=== PATIENT | female | born 1950 | race Caucasian/White ===

== ENCOUNTER → 2016-07-09 | Outpatient (CLI) | payer MEDICARE, BC ==
[~2016-07-09] MED LIST: FENTANYL PF 100 MCG/2ML ONE; GADOBUTROL 10 MMOL/10 ML PFS ONE; MIDAZOLAM 1 MG/ML, 5ML ONE
== END | disposition home or self-care (01) ==
LOC: RAD 08:21
PROVIDERS: ATTEND Internal Medicine Gastroenterology
DX: K86.89 Other specified diseases of pancreas (principal); K74.60 Unspecified cirrhosis of liver; B18.2 Chronic viral hepatitis C; R93.5 Abnormal findings on diagnostic imaging of other abdominal regions, including retroperitoneum; F41.9 Anxiety disorder, unspecified; Z90.49 Acquired absence of other specified parts of digestive tract
CPT/HCPCS: 74183; 99156; 99157; A9585; J2250; J3010

== ENCOUNTER → 2016-09-01 | Outpatient (CLI) | payer MEDICARE, BC ==
[~2016-09-01] MED LIST changes: -GADOBUTROL 10 MMOL/10 ML PFS ONE
== END | disposition home or self-care (01) ==
LOC: RAD 11:57
PROVIDERS: ATTEND Physical Medicine & Rehabilitation Pain Medicine
DX: M47.817 Spondylosis without myelopathy or radiculopathy, lumbosacral region (principal); M51.16 Intervertebral disc disorders with radiculopathy, lumbar region; Z87.81 Personal history of (healed) traumatic fracture
CPT/HCPCS: 72148; 99156; 99157; J2250; J3010